=== PATIENT | male | born 1935 | race Caucasian/White ===

== ENCOUNTER 2022-01-13 21:59 | Emergency (ER) | payer MEDICARE, BC, OTHER ==
[~2022-01-13] VITALS: Ht 162.6 cm; Wt 74.8 kg
--- NOTE | 2022-01-13 22:26 | NUR ---
DR Faria in room MSE in progress
--- NOTE | 2022-01-13 22:27 | NUR ---
Patient's daughter at bedside
--- NOTE | 2022-01-13 22:42 | NUR ---
Patient discharged to home in stable condition. Written and verbal after care instructions given. Patient verbalizes understanding of instructions. Stressed follow up or return to ER for worsening s/s. Patient is a/ox4, NAD noted. Patient is ablw to walk with a walker. Patient is accompanied by his daughter
[2022-01-13 22:44] VITALS: BP 130/81
== END 2022-01-13 22:44 | disposition home or self-care (01) ==
LOC: ER 22:03
DX: Z04.1 Encounter for examination and observation following transport accident (principal); E11.22 Type 2 diabetes mellitus with diabetic chronic kidney disease; N18.9 Chronic kidney disease, unspecified; K21.9 Gastro-esophageal reflux disease without esophagitis
CPT/HCPCS: A4663